=== PATIENT | male | born 1950 | race Hispanic/Latino ===

== ENCOUNTER 2017-03-24 17:33 | Emergency (ER) | payer MEDICARE ==
[2017-03-24 19:57] LABS: Basophils # (Auto) 0.1 K/mm3 (0.0-0.1); Basophils % (Auto) 1.2 % (0.0-1.8); Eosinophils # (Auto) 0.2 K/mm3 (0.0-0.4); Hematocrit 37.1 % (35.5-45.6); Hemoglobin 12.9 gm/dl (11.8-15.2); Lymphocytes # (Auto) 1.8 K/mm3 (1.2-5.4); Lymphocytes % (Auto) 21.8 % (13.4-35.0); Mean Corpuscular HGB Conc 35 % (32-34); Mean Corpuscular Hemoglobin 32 pg (28-32); Mean Corpuscular Volume 92 fl (84-94); Monocytes # (Auto) 0.7 K/mm3 (0.0-0.8); Monocytes % (Auto) 8.4 % (0.0-7.3); Platelet Count 243 K/mm3 (140-440); Red Blood Count 4.03 M/mm3 (3.65-5.03); Red Cell Distribution Width 13.3 % (13.2-15.2)
[2017-03-24 20:15] LABS: BUN/Creatinine Ratio 15; Blood Urea Nitrogen 16 mg/dL (9-20); Calcium 8.9 mg/dL (8.4-10.2); Hemolysis Index 6
--- NOTE | 2017-03-24 20:18 | Emergency Department Report ---
ED General Adult HPI - General Chief complaint: Upper Respiratory Infection Stated complaint: AMS Time Seen by Provider: 03/24/17 20:06 Source: patient, EMS Mode of arrival: Stretcher Limitations: No Limitations - History of Present Illness Initial comments: 66 yo male who comes in today due to being sent from [place]. He states that he was informed that he has pneumonia and was sent to the ED for evaluation. The patient denies any fever, chills, cough, shortness of breath. He does admit to being treated for pneumonia four weeks ago, and was told that it is resolved. -: month(s) (one ) Severity scale (0 -10): 0 Associated Symptoms: other (none) - Related Data Allergies Allergy/AdvReac Type Severity Reaction Status Date / Time acamprosate [From Campral] Allergy Unknown Verified 03/24/17 18:06 ED Review of Systems ROS: Stated complaint: AMS Other details as noted in HPI Constitutional: denies: chills, fever Eyes: denies: eye pain, eye discharge, vision change ENT: denies: ear pain, throat pain Respiratory: denies: cough, shortness of breath, wheezing Cardiovascular: denies: chest pain, palpitations Endocrine: no symptoms reported Gastrointestinal: denies: abdominal pain, nausea, diarrhea Genitourinary: denies: urgency, dysuria Musculoskeletal: denies: back pain, joint swelling, arthralgia Skin: denies: rash, lesions Neurological: denies: headache, weakness, paresthesias Psychiatric: denies: anxiety, depression Hematological/Lymphatic: denies: easy bleeding, easy bruising ED Past Medical Hx - Past Medical History Previous Medical History?: Yes Additional medical history: etoh abuse. copd ED Physical Exam - General Limitations: No Limitations General appearance: alert, in no apparent distress - Head Head exam: Present: atraumatic, normocephalic - Eye Eye exam: Present: normal appearance - ENT ENT exam: Present: mucous membranes moist - Neck Neck exam: Present: normal inspection - Respiratory Respiratory exam: Present: normal lung sounds bilaterally. Absent: respiratory distress - Cardiovascular Cardiovascular Exam: Present: regular rate, normal rhythm. Absent: systolic murmur, diastolic murmur, rubs, gallop - Extremities Exam Extremities exam: Present: normal inspection - Back Exam Back exam: Present: normal inspection - Neurological Exam Neurological exam: Present: alert, oriented X3 - Psychiatric Psychiatric exam: Present: normal affect, normal mood - Skin Skin exam: Present: warm, dry, intact, normal color. Absent: rash ED Course Vital Signs 03/24/17 03/24/17 03/24/17 17:59 19:27 20:05 Temperature 97.7 F 97.9 F Pulse Rate 64 63 Respiratory 16 18 Rate Blood Pressure 108/53 129/69 Blood Pressure 108/53 126/61 [Left] O2 Sat by Pulse 96 97 Oximetry - Reevaluation(s) Reevaluation #1: 03/24/17 20:18 Evaluation unremarkable. Plan to discharge back to [place] if chest radiograph negative. Reevaluation #2: 03/24/17 21:06 Chest radiograph unremarkable on visualization. ED Medical Decision Making - Lab Data Result diagrams: 03/24/17 19:42 03/24/17 19:42 - Radiology Data Radiology results: image reviewed interpreted by me: No acute pathology. - Medical Decision Making Hypokalemia Hx of etoh abuse - Differential Diagnosis hypokalemia, hx of etoh abuse Critical care attestation.: If time is entered above; I have spent that time in minutes in the direct care of this critically ill patient, excluding procedure time. ED Disposition Clinical Impression: Hypokalemia, History of ETOH abuse Disposition: [id number]/TX-70 ANOTHER TYPE HLTHCARE Is pt being admited?: No Does the pt Need Aspirin: No Condition: Stable Instructions: Hypokalemia (ED) Additional Instructions: May resume your regularly scheduled medications. Referrals: ANABEL VILLAVICENCIO MD [Primary Care Provider] - 3-5 Days Time of Disposition: 21:08
[2017-03-24] MEDS ORDERED: K-DUR PO ONE (21:10)
--- NOTE | 2017-03-24 21:29 | XRay Report ---
FINAL REPORT EXAM: XR CHEST 1V AP HISTORY: pneumonia TECHNIQUE: upright single view chest PRIORS: None. FINDINGS: Cardiac and mediastinal contours are unremarkable. No focal pulmonary infiltrate is identified. No pleural fluid collection seen. Pulmonary vasculature is unremarkable. IMPRESSION: Negative single-view chest
[2017-03-25 00:16] VITALS: BP 141/79
== END 2017-03-25 00:17 | disposition other institution (70) ==
LOC: ED 17:33
DX: E87.6 Hypokalemia (principal); F10.10 Alcohol abuse, uncomplicated; J44.9 Chronic obstructive pulmonary disease, unspecified; Z88.8 Allergy status to other drugs, medicaments and biological substances
CPT/HCPCS: 36415; 71045; 80048; 85025; 99285; G0480; 80320